=== PATIENT | female | born 1950 | race Caucasian/White ===

== ENCOUNTER 2016-09-06 02:46 | Emergency (ER) | payer BC ==
[2016-09-06] MEDS ORDERED: Aspirin 81 MG Tab.Chew PO ONE (03:14)
[2016-09-06] MEDS ORDERED: Sodium Chloride 0.9% 2.5 ML Syringe FLUSH PRN ×2 (03:14)
[2016-09-06] MEDS ORDERED: Sodium Chloride 0.9% 10 ML Syringe FLUSH PRN ×2 (03:14)
--- NOTE | 2016-09-06 03:20 | EDM.PDOC ---
ED HISTORY OF PRESENT ILLNESS - General Stated Complaint: ARM,NECK, POSSIBLE CHEST PAIN Time Seen by Provider: 09/06/16 02:55 Source of Information: Reports: Patient History Limitations: Reports: No limitations - History of Present Illness INITIAL COMMENTS - FREE TEXT/NARRATIVE: HISTORY AND PHYSICAL: History of present illness: [66-year-old female with a history of asthma and atrial fibrillation, not currently in nature fibrillation now presents emergency department complaining of right upper back pain and right shoulder pain and right bicep pain and per patient the pain these areas is reproduced with palpation and movement .the right shoulder pain is the same that she's had for years] and she is presumed it was bursitis. Patient now has reproducible soreness in her right upper back so she came to the emergency room to have it checked out. Denies exertional chest pain or shortness of breath no nausea vomiting or diaphoresis. Negative stress test previously but more than 5 years ago. Review of systems: As per history of present illness and below otherwise all systems reviewed and negative. Past medical history: As per history of present illness and as reviewed below otherwise noncontributory. Surgical history: As per history of present illness and as reviewed below otherwise noncontributory. Social history: No reported history of drug or alcohol abuse. Family history: As per history of present illness and as reviewed below otherwise noncontributory. Physical exam: HEENT: Atraumatic, normocephalic, pupils reactive, negative for conjunctival pallor or scleral icterus, mucous membranes moist, throat clear, neck supple, nontender, trachea midline. Lungs: Clear to auscultation, breath sounds equal bilaterally, chest nontender. Heart: S1S2, regular, negative for clicks, rubs, or JVD. Abdomen: Soft, nondistended, nontender. Negative for masses or hepatosplenomegaly. Negative for costovertebral tenderness. Pelvis: Stable nontender. Genitourinary: Deferred. Rectal: Deferred. Extremities: Atraumatic, negative for cords or calf pain. Neurovascular unremarkable. Neuro: Awake, alert, oriented. Cranial nerves II through XII unremarkable. Cerebellum unremarkable. Motor and sensory unremarkable throughout. Exam nonfocal. Diagnostics: [] Therapeutics: [] Impression: [] Plan: [] Definitive disposition and diagnosis as appropriate pending reevaluation and review of above. - Related Data Allergies/ADRs: Allergies Allergy/AdvReac Type Severity Reaction Status Date / Time oxycodone HCl [From Percodan] Allergy Rash Verified 09/06/16 03:25 oxycodone terephthalate Allergy Rash Verified 09/06/16 03:25 [From Percodan] Home Meds: Home Meds Fluticasone Propionate [Flonase] 2 sprays ABEBA DAILY 02/14/14 [History] Multivitamin [Multi-Vitamin Daily] 1 tab PO DAILY 02/14/14 [History] Simvastatin [Zocor] 20 mg PO DAILY 02/14/14 [History] Ascorbic Acid [C-1000] 500 mg PO DAILY 02/28/14 [History] Calcium Carbonate/Vitamin D3 [Calcium 500-Vit D3 200 Caplet] 1 tab PO BID [History] Diclofenac Sodium [Voltaren] 75 mg PO BIDM 02/28/14 [History] Diltiazem [Cardizem CD] 240 mg PO DAILY #39 cap.cd 02/28/14 [Rx] Doxycycline Hyclate 100 mg PO DAILY 02/28/14 [History] [place]-3/DHA/Epa/Fish Oil [Fish Oil 1,000 mg Softgel] 1 each PO DAILY 02/28/14 [ History] Vitamin E 400 units PO DAILY 02/28/14 [History] Levalbuterol HCl [Xopenex Concentrate] 1.25 mg IH QID PRN 03/06/14 [History] Levalbuterol Tartrate [Xopenex Hfa] 1 - 2 puff INH Q4H PRN 07/03/16 [History] Montelukast Sodium 1 tab PO QPM 07/03/16 [History] Pantoprazole Sodium 1 tab PO DAILY 07/03/16 [History] Acetaminophen/HYDROcodone [[place] 325-10 MG] 1 - 2 tab PO Q4H PRN #80 tablet [Rx] Aspirin 325 mg PO BID #60 tablet 07/10/16 [Rx] Docusate Sodium [Colace] 100 mg PO BID #60 cap 07/10/16 [Rx] traMADol [Ultram] 50 - 100 mg PO Q6H PRN #80 tablet 07/10/16 [Rx] Past Medical History HEENT History: Reports: Other (see below) Other HEENT History: wears glasses, has permanent upper dental bridge, has occular roacea (takes doxycycline) Cardiovascular History: Reports: Afib Other Cardiovascular History: developed A-Fib because of severe asthma attack, takes diltiazem, no recurrence of A-Fib Respiratory History: Reports: Asthma Gastrointestinal History: Reports: GERD Genitourinary History: Reports: None 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 Musculoskeletal History: Reports: Arthritis Neurological History: Reports: Other (see below) Other Neuro History: has "tremors" undiagnosed Psychiatric History: Reports: Anxiety, Depression, Other (see below) Other Psychiatric History: VERY Claustrophobic Endocrine/Metabolic History: Reports: Obesity/BMI 30+ Hematologic History: Reports: None Immunologic History: Reports: None Other Oncologic History: has skin lesions removed, unsure of type Dermatologic History: Reports: None - Infectious Disease History Infectious Disease History: Reports: None - Past Surgical History Head Surgeries/Procedures: Reports: None HEENT Surgical History: Reports: Oral surgery Cardiovascular Surgical History: Reports: None Respiratory Surgical History: Reports: None GI Surgical History: Reports: Colonoscopy Female Surgical History: Reports: D&C Endocrine Surgical History: Reports: None Neurological Surgical History: Reports: None Musculoskeletal Surgical History: Reports: None Oncologic Surgical History: Reports: None Social & Family History - Family History Family Medical History: Noncontributory HEENT: Reports: None Cardiac: Reports: CAD, Hypertension Respiratory: Reports: None GI: Reports: None : Reports: None OBGYN: Reports: None Musculoskeletal: Reports: None Neurological: Reports: None Psychiatric: Reports: None Endocrine/Metabolic: Reports: Diabetes, type II Hematologic: Reports: None Immunologic: Reports: None Dermatologic: Reports: None Oncologic: Reports: None - Tobacco Use Smoking Status *Q: Never Smoker Second Hand Smoke Exposure: No - Caffeine Use Caffeine Use: Reports: None - Alcohol Use Days Per Week of Alcohol Use: 0 - Recreational Drug Use Recreational Drug Use: No Drug Use in Last 12 Months: No ED ROS GENERAL - Review of Systems Review Of Systems: See Below (See history of present illness) ED EXAM, GENERAL - Physical Exam Exam: See Below (See history of present illness) Course - Vital Signs Text/Narrative:: Signs and symptoms consistent with musculoskeletal pain right upper back and right upper extremity easily reproduced with palpation. Patient has no neurologic deficit. She has no clinical evidence of acute coronary syndrome, her EKG is normal sinus rhythm at 77 with a normal axis and no STEMI. Chest x- ray interpreted by me shows no acute disease, chronic findings which are unremarkable. He workup negative. Patient agrees with outpatient followup with NSAIDs will see her PCP in one day. Crit return precautions given Last Recorded V/S: Last Vital Signs Temp 36.4 C 09/06/16 02:49 Pulse 93 09/06/16 02:49 Resp 18 09/06/16 02:49 BP 180/90 H 09/06/16 02:49 Pulse Ox 95 09/06/16 02:49 - Orders/Labs/Meds Orders: Active Orders 24 hr Category Date Time Status EKG 12 Lead [EKG Documentation Completion] [RC] STAT Care 09/06/16 03:14 Active Peripheral IV Care [RC] . DIRECTED Care 09/06/16 03:14 Active Chest 1V Frontal [CR] Stat Exams 09/06/16 03:14 Taken Sodium Chloride 0.9% [Saline Flush] Med 09/06/16 03:14 Active 10 ml FLUSH ASDIRECTED PRN Sodium Chloride 0.9% [Saline Flush] Med 09/06/16 03:14 Active 10 ml FLUSH ASDIRECTED PRN Sodium Chloride 0.9% [Saline Flush] Med 09/06/16 03:14 Active 2.5 ml FLUSH ASDIRECTED PRN Sodium Chloride 0.9% [Saline Flush] Med 09/06/16 03:14 Active 2.5 ml FLUSH ASDIRECTED PRN Peripheral IV Insertion Adult [OM.PC] Stat Oth 09/06/16 03:14 Ordered Saline Lock Insert [OM.PC] Stat Oth 09/06/16 03:14 Ordered Medication Orders Sodium Chloride (Saline Flush) 10 ml FLUSH ASDIRECTED PRN PRN Reason: Keep Vein Open Sodium Chloride (Saline Flush) 2.5 ml FLUSH ASDIRECTED PRN PRN Reason: Keep Vein Open Sodium Chloride (Saline Flush) 10 ml FLUSH ASDIRECTED PRN PRN Reason: Keep Vein Open Sodium Chloride (Saline Flush) 2.5 ml FLUSH ASDIRECTED PRN PRN Reason: Keep Vein Open Labs: Laboratory Tests 09/06/16 09/06/16 09/06/16 Range/Units 03:14 03:40 03:40 WBC 6.80 (4.0-11.0) K/uL RBC 4.79 (4.30-5.90) M/uL Hgb 13.7 (12.0-16.0) g/dL Hct 42.2 (36.0-46.0) % MCV 88.1 (80.0-98.0) fL MCH 28.6 (27.0-32.0) pg MCHC 32.5 (31.0-37.0) g/dL RDW Std Deviation 45.6 (28.0-62.0) fl RDW Coeff of [place] 14 (11.0-15.0) % Plt Count 236 (150-400) K/uL MPV 9.20 (7.40-12.00) fL Neut % (Auto) 67.6 (48.0-80.0) % Lymph % (Auto) 22.2 (16.0-40.0) % [place] % (Auto) 6.2 (0.0-15.0) % Eos % (Auto) 3.7 (0.0-7.0) % Baso % (Auto) 0.3 (0.0-1.5) % Neut # 4.6 (1.4-5.7) K/uL Lymph # 1.5 (0.6-2.4) K/uL [place] # 0.4 (0.0-0.8) K/uL Eos # 0.3 (0.0-0.7) K/uL Baso # 0.0 (0.0-0.1) K/uL Nucleated RBC % 0.0 /100WBC Nucleated RBCs # 0 K/uL Sodium 143 (136-146) mmol/L Potassium 4.1 (3.5-5.1) mmol/L Chloride 110 (98-110) mmol/L Carbon Dioxide 23 (21-31) mmol/L BUN 13 (6.0-23.0) mg/dL Creatinine 0.8 (0.6-1.5) mg/dL Est Cr Clr Drug Dosing 58.77 mL/min Estimated GFR (MDRD) > 60.0 ml/min Glucose 118 H (60-110) mg/dL Calcium 8.9 (8.8-10.8) mg/dL Total Bilirubin 0.5 (0.1-1.5) mg/dL AST 19 (5-40) IU/L ALT 32 (8-54) IU/L Alkaline Phosphatase 61 (40-150) Troponin I < 0.10 (0.0-0.29) NG/ML Total Protein 6.5 (6.0-8.0) g/dL Albumin 3.9 (3.4-4.8) g/dL Globulin 2.6 (2.0-3.5) g/dL Albumin/Globulin Ratio 1.5 (1.3-2.8) Meds: Medications Generic Name Dose Route Start Last Admin Trade Name Freq PRN Reason Stop Dose Admin Sodium Chloride 10 ml 09/06/16 03:14 Saline Flush FLUSH ASDIRECTED PRN Keep Vein Open Sodium Chloride 2.5 ml 09/06/16 03:14 Saline Flush FLUSH ASDIRECTED PRN Keep Vein Open Sodium Chloride 10 ml 09/06/16 03:14 Saline Flush FLUSH ASDIRECTED PRN Keep Vein Open Sodium Chloride 2.5 ml 09/06/16 03:14 Saline Flush FLUSH ASDIRECTED PRN Keep Vein Open Discontinued Medications Generic Name Dose Route Start Last Admin Trade Name Freq PRN Reason Stop Dose Admin Aspirin 324 mg 09/06/16 03:14 09/06/16 03:47 Aspirin PO 09/06/16 03:15 324 mg ONETIME ONE Administration Departure - Departure Time of Disposition: 06:00 Disposition: Home, Self-Care 01 Condition: good Clinical Impression: Shoulder pain, right, Upper back pain on right side Instructions: Shoulder Pain, [id number] Referrals: PCP,None [Primary Care Provider] - Forms: ED Department Discharge Additional Instructions: Her history and exam date that your shoulder and back pain are musculoskeletal in nature. There is a possibility that the pain could be referred from compression of the nerve root in your neck. Take ibuprofen 800 mg every 6 hours and Tylenol as needed. Followup with your Dr. in one to 2 days for reevaluation. If your symptoms persist in your Dr. feels it is indicated he or she may consider referring him for an MRI of the neck to rule out nerve root compression as the cause for referred pain in the right arm shoulder and upper back. Your history exam and results do not suggest that the pain is from your heart today but since it has been more than 5 years and she got a stress test followup with your doctor this arrange scheduling another. Return immediately for new severe or worsening symptoms otherwise follow up with your Dr. in the next one to 2 days - My Orders Last 24 Hours: My Active Orders 09/06/16 03:14 EKG 12 Lead [EKG Documentation Completion] [RC] STAT Peripheral IV Care [RC] . DIRECTED Chest 1V Frontal [CR] Stat Sodium Chloride 0.9% [Saline Flush] 10 ml FLUSH ASDIRECTED PRN Sodium Chloride 0.9% [Saline Flush] 10 ml FLUSH ASDIRECTED PRN Sodium Chloride 0.9% [Saline Flush] 2.5 ml FLUSH ASDIRECTED PRN Sodium Chloride 0.9% [Saline Flush] 2.5 ml FLUSH ASDIRECTED PRN Peripheral IV Insertion Adult [OM.PC] Stat Saline Lock Insert [OM.PC] Stat - Assessment/Plan Last 24 Hours: My Active Orders 09/06/16 03:14 EKG 12 Lead [EKG Documentation Completion] [RC] STAT Peripheral IV Care [RC] . DIRECTED Chest 1V Frontal [CR] Stat Sodium Chloride 0.9% [Saline Flush] 10 ml FLUSH ASDIRECTED PRN Sodium Chloride 0.9% [Saline Flush] 10 ml FLUSH ASDIRECTED PRN Sodium Chloride 0.9% [Saline Flush] 2.5 ml FLUSH ASDIRECTED PRN Sodium Chloride 0.9% [Saline Flush] 2.5 ml FLUSH ASDIRECTED PRN Peripheral IV Insertion Adult [OM.PC] Stat Saline Lock Insert [OM.PC] Stat
[2016-09-06 04:08] LABS: CHLORIDE,CL 110 mmol/L (98-110); SODIUM,NA 143 mmol/L (136-146)
[2016-09-06 06:20] VITALS: BP 141/63
--- NOTE | 2016-09-07 18:05 | CR ---
EXAM DATE: 09/06/16 PATIENT'S AGE: 66 Patient: OCHOA MARTIN Facility: [place], [place] Site . Site : 1950 Study: XRay Chest [id number]/19/2017 4:39:55 AM Ordering Physician: Jelani Bernal Final Report: Indication: Chest tightness Technique: Chest 1 view Comparison: 03/03/2014. Findings/Impression: Cardiovascular and mediastinum: Mildly prominent cardiac silhouette, could be related to the portable technique. A mildly unfolded aorta. Lungs and pleural space: Lungs are clear. No sign of infiltrate or mass. No sign of pleural effusion. No pneumothorax. Bones and soft tissues: No significant findings. Dictated by Winston Bryan MD @ 09/06/2016 5:54:02 AM Dictated by: Winston Bryan MD @ 09/06/2016 05:54:08 (Electronic Signature) Report Signed by Proxy and Original Signed Document filed in the Medical Record. KIRAN
== END 2016-09-06 06:20 | disposition home or self-care (01) ==
LOC: MW.ED 02:46
DX: M25.511 Pain in right shoulder (principal); M54.9 Dorsalgia, unspecified; I48.91 Unspecified atrial fibrillation; K21.9 Gastro-esophageal reflux disease without esophagitis; E66.9 Obesity, unspecified; Z68.36 Body mass index [BMI] 36.0-36.9, adult; Z88.5 Allergy status to narcotic agent; Z79.82 Long term (current) use of aspirin; Z79.899 Other long term (current) drug therapy
CPT/HCPCS: 36415; 71010; 80053; 84484; 85025; 93005; 99284; A9270; 99283

== ENCOUNTER 2017-01-13 09:28 | Day surgery (SDC) | payer BC ==
[~2017-01-13 09:28] MED LIST: Lactated Ringers 1,000 ML IV SCH; Sodium Chloride 0.9% 10 ML Syringe FLUSH PRN; Sodium Chloride 0.9% 2.5 ML Syringe FLUSH PRN; ceFAZolin 2 GM in Premix Bag 1 BAG IV ONE
--- NOTE | 2017-01-13 10:14 | PCM.PREANE ---
Preanesthetic Assessment - Anesthesia/Transfusion/Family Hx Anesthesia History: Prior Anesthesia Without Reaction Other Type of Anesthesia Reaction Comment: "with last breast bx I cried during the whole procedure" Family History of Anesthesia Reaction: No Transfusion History: No Prior Transfusion(s) Intubation History: Unknown - Review of Systems General: No Symptoms Pulmonary: No Symptoms Cardiovascular: No Symptoms Gastrointestinal: No Symptoms Neurological: No Symptoms Other: Reports: None - Physical Assessment Height: 1.6 m Weight: 96.615 kg ASA Class: 3 Mental Status: Alert & Oriented x3 Airway Class: Mallampati = 3 Dentition: Reports: Normal Dentition Thyro-Mental Finger Breadths: 2 Mouth Opening Finger Breadths: 2 ROM/Head Extension: Full Lungs: Clear to Auscultation, Normal Respiratory Effort Cardiovascular: Regular Rate, Regular Rhythm - Allergies Allergies/Adverse Reactions: Allergies Allergy/AdvReac Type Severity Reaction Status Date / Time oxycodone HCl [From Percodan] Allergy Rash Verified 09/06/16 03:25 oxycodone terephthalate Allergy Rash Verified 09/06/16 03:25 [From Percodan] - Blood Blood Available: No - Anesthesia Plan Pre-Op Medication Ordered: None - Acknowledgements Anesthesia Type Planned: MAC (general anesthesia back-up) Pt an Appropriate Candidate for the Planned Anesthesia: Yes Alternatives and Risks of Anesthesia Discussed w Pt/Guardian: Yes Pt/Guardian Understands and Agrees with Anesthesia Plan: Yes PreAnesthesia Questionnaire - Past Health History Medical/Surgical History: Denies Medical/Surgical History HEENT History: Reports: Other (See Below) Other HEENT History: wears glasses, has permanent upper dental bridge, has occular roacea (takes doxycycline) Cardiovascular History: Reports: Afib, High Cholesterol Other Cardiovascular History: developed A-Fib because of severe asthma attack, takes diltiazem, no recurrence of A-Fib Respiratory History: Reports: Asthma, Sleep Apnea Other Respiratory History: uses CPAP Gastrointestinal History: Reports: GERD Genitourinary History: Reports: None 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 Musculoskeletal History: Reports: Arthritis Neurological History: Reports: Other (See Below) Other Neuro History: has "tremors" undiagnosed Psychiatric History: Reports: Anxiety, Depression, Other (See Below) Other Psychiatric History: VERY Claustrophobic Endocrine/Metabolic History: Reports: Obesity/BMI 30+ Hematologic History: Reports: None Immunologic History: Reports: None Oncologic (Cancer) History: Reports: Other (See Below) Other Oncologic History: has skin cancer lesions left breast and rt yarsanism Dermatologic History: Reports: None - Infectious Disease History Infectious Disease History: Reports: None - Past Surgical History Head Surgeries/Procedures: Reports: None HEENT Surgical History: Reports: Oral Surgery Cardiovascular Surgical History: Reports: None Respiratory Surgical History: Reports: None GI Surgical History: Reports: Colonoscopy Female Surgical History: Reports: Breast Biopsy (x2), D&C Endocrine Surgical History: Reports: None Neurological Surgical History: Reports: None Musculoskeletal Surgical History: Reports: Knee Replacement Other Musculoskeletal Surgeries/Procedures:: left knee replacement Oncologic Surgical History: Reports: None Dermatological Surgical History: Reports: Skin Biopsy - SUBSTANCE USE Smoking Status *Q: Never Smoker Tobacco Use Within Last Twelve Months: No Second Hand Smoke Exposure: No Days Per Week of Alcohol Use: 0 Recreational Drug Use History: No - HOME MEDS Home Medications: Home Meds Fluticasone Propionate [Flonase] 2 sprays ABEBA DAILY 02/14/14 [History] Multivitamin [Multi-Vitamin Daily] 1 tab PO DAILY 02/14/14 [History] Simvastatin [Zocor] 20 mg PO DAILY 02/14/14 [History] Ascorbic Acid [C-1000] 500 mg PO DAILY 02/28/14 [History] Calcium Carbonate/Vitamin D3 [Calcium 500-Vit D3 200 Caplet] 2 tab PO DAILY 04/03 [History] Diclofenac Sodium [Voltaren] 75 mg PO BIDM 02/28/14 [History] Diltiazem [Cardizem CD] 240 mg PO DAILY #39 cap.cd 02/28/14 [Rx] Doxycycline Hyclate 100 mg PO DAILY 02/28/14 [History] [place]-3/DHA/Epa/Fish Oil [Fish Oil 1,000 mg Softgel] 3 tab PO DAILY 02/28/14 [ History] Vitamin E 400 units PO DAILY 02/28/14 [History] Levalbuterol HCl [Xopenex Concentrate] 1.25 mg IH QID PRN 03/06/14 [History] Levalbuterol Tartrate [Xopenex Hfa] 1 - 2 puff INH Q4H PRN 07/03/16 [History] Montelukast Sodium 1 tab PO QPM 07/03/16 [History] Pantoprazole Sodium 1 tab PO DAILY 07/03/16 [History] Aspirin 81 mg PO BID 12/31/16 [History] Fluticasone/Salmeterol [Advair Diskus 500-50] 1 inh INH BID 12/31/16 [History] Nitroglycerin 0.4 mg SL ASDIRECTED PRN 12/31/16 [History] - CURRENT (IN HOUSE) MEDS Current Meds: Current Medications Lactated Ringer's (Ringers, Lactated) 1,000 mls @ 125 mls/hr IV ASDIRECTED ABIGAIL Sodium Chloride (Saline Flush) 10 ml FLUSH ASDIRECTED PRN PRN Reason: Keep Vein Open Sodium Chloride (Saline Flush) 2.5 ml FLUSH ASDIRECTED PRN PRN Reason: Keep Vein Open Discontinued Medications Cefazolin Sodium/Dextrose 2 gm (/ Premix) 50 mls @ 100 mls/hr IV ONETIME ONE Stop: 01/12/17 12:24
[2017-01-13] MEDS: Midazolam 1 MG/ML 2 ML SDV IVPUSH ONE ×2 (10:23→10:49)
[2017-01-13] MEDS ORDERED: Lidocaine 2% 5 ML SDV ONE (12:28)
[2017-01-13] MEDS ORDERED: Sodium Chloride 0.9% 20 ML ONE (12:29)
[2017-01-13] MEDS ORDERED: ceFAZolin 1 GM Vial ONE (12:29)
[2017-01-13] MEDS ORDERED: fentaNYL 250 MCG/5 ML SDV ONE (12:29)
[2017-01-13] MEDS ORDERED: Propofol 200 MG/20 ML SDV ONE ×2 (12:29→15:00)
[2017-01-13] MEDS ORDERED: Midazolam 1 MG/ML 2 ML SDV ONE (12:29)
[2017-01-13] MEDS ORDERED: Bupivacaine 0.5% 30 ML SDV ONE (13:41)
--- NOTE | 2017-01-13 15:42 | PCM.OPNOTE ---
- General Post-Op/Procedure Note Date of Surgery/Procedure: 01/13/17 Operative Procedure(s): Left breast lesion excisional biopsy Findings: Left medial lower breast lesions wire localized. Clip in specimen. Margins free of abnormal cells. Pre Op Diagnosis: atypical ductal hyperplasia Post-Op Diagnosis: same Anesthesia Technique: General LMA Primary Surgeon: Saumya Barahona Fluid Replacement, Intraop: 900 EBL in mLs: 5 Condition: Good
[2017-01-13] MEDS ORDERED: fentaNYL 100 MCG/2 ML SDV IVPUSH PRN (15:49)
--- NOTE | 2017-01-13 16:38 | MY ---
EXAMINATION: Left breast mammogram where localization HISTORY: Dysplasia COMPARISON: 11/18/2016 TECHNIQUE: The procedure, risks, and benefits were discussed with the patient. The hourglass shaped clip was visualized. A medial approach was planned. The overlying area was sterilely prepped. 1% lid ocaine was administered for local anesthesia. Using mammogram guidance a wire localization needle wa s advanced to the region of the clip. This was confirmed with the cc view. The hook was deployed and secured. IMPRESSION: Successful wire localization of the hourglass-shaped clip.
[2017-01-13 16:59] VITALS: BP 150/77
--- NOTE | 2017-01-14 14:29 | OR ---
SURGEON: BARBARA VÁZQUEZ MD DATE OF PROCEDURE: 01/13/2017 PREOPERATIVE DIAGNOSIS: Atypical ductal hyperplasia of the left breast. POSTOPERATIVE DIAGNOSIS: Atypical ductal hyperplasia of the left breast. PROCEDURE PERFORMED: Left breast wire localized excisional biopsy. ANESTHESIA: General LMA. FLUIDS: See anesthesia record. ESTIMATED BLOOD LOSS: 5 mL. FINDINGS: Biopsy clip contained within the incisional biopsy specimen. COMPLICATIONS: None. INDICATIONS: The patient is a 66-year-old female, who presented to clinic with a biopsy of atypical ductal hyperplasia. This was performed by core needle sampling. The patient and I discussed that this is a high risk lesion with a possibility of harboring ductal carcinoma in situ. Due to this, she would need to undergo a wide local excision of the previously biopsied area. The patient and I discussed the procedure as well as expected perioperative course. We discussed the risks, including bleeding, infection, or damage to surrounding structures. The patient verbalized understanding and wishes to proceed. Of note, the patient has had a previous biopsy done more medially in the breast. This was incorrect and the biopsies from the site were normal. The radiologist and I reviewed the correct location of the biopsy clip from her previous core needle biopsy. The biopsy site was medial and located in the left lower quadrant. This was ensured before wire localization as well as taking the patient to the operating room. PROCEDURE IN DETAIL: The patient was taken to the operating room and placed on the OR table in supine position. A time-out was completed verifying the patient's name, age, date of , allergies, and procedure to be performed. General anesthesia was induced and an LMA placed. The left chest, neck, and arm were prepped and draped in usual standard fashion. The wire that was placed in Radiology was also prepped into the field. I first anesthetized the area overlying the wire with 0.5% Marcaine plain. The wire traversed from medial to lateral, and so I made a 5 cm incision starting at the wire medially and extending laterally along the lower aspect of the breast. I used cautery to then dissect down into the subcutaneous tissues. I had reached the level of the subcutaneous fat, I took out a section of tissue approximately 2 x 2 x 2 cm in diameter around the wire itself. The specimen was then passed off the field and sent to Radiology. While passing it off the field, unfortunately the wire fell out. Radiographic images were taken that showed the clip to be within the biopsy specimen. The specimen was then taken to Pathology and the margins for frozen section. The margins of my biopsy were free of any malignancy or atypical cells. The wound was copiously irrigated with normal saline. Hemostasis was achieved with cautery. I then closed the wound with interrupted 3-0 Vicryl in the subcutaneous fat and a running 4-0 Monocryl stitch in the subcuticular space. The wound was dressed with Steri-Strips and sterile dressings. All counts were complete and correct at the end of the case. The patient was taken to the PACU in stable condition. DAVID DE LA GARZA /[id number]
--- NOTE | 2017-01-18 08:26 | MY ---
EXAMINATION: Specimen mammogram HISTORY: Needle localization COMPARISON: Same day TECHNIQUE: Single view FINDINGS/IMPRESSION: A specimen mammogram demonstrates the clip of concern within the specimen.
== END 2017-01-13 16:50 | disposition home or self-care (01) ==
LOC: MW.SDS 09:28
PROVIDERS: ATTEND Surgery
PROC: 0HBU0ZX Excision of Left Breast, Open Approach, Diagnostic (ICD-10-PCS; principal; 2017-01-13)
DX: N60.92 Unspecified benign mammary dysplasia of left breast (principal); I10 Essential (primary) hypertension; J45.909 Unspecified asthma, uncomplicated; I48.91 Unspecified atrial fibrillation; E66.9 Obesity, unspecified; G47.33 Obstructive sleep apnea (adult) (pediatric); E78.00 Pure hypercholesterolemia, unspecified; K21.9 Gastro-esophageal reflux disease without esophagitis; Z79.899 Other long term (current) drug therapy; Z79.82 Long term (current) use of aspirin; Z96.652 Presence of left artificial knee joint
CPT/HCPCS: 19125; 19281; 76098; J0690; J2250; J3010; J7120; 00400; 88307; 88331; J2704

== ENCOUNTER 2018-10-30 21:34 | Emergency (ER) | payer MEDICARE, BC ==
[2018-10-30] MEDS ORDERED: Sodium Chloride 0.9% 10 ML Syringe FLUSH PRN (22:06)
[2018-10-30] MEDS ORDERED: Sodium Chloride 0.9% 2.5 ML Syringe FLUSH PRN (22:06)
[2018-10-30] MEDS ORDERED: Ketorolac 30 MG/ML SDV IVPUSH ONE (22:09)
[2018-10-30] MEDS ORDERED: traMADol 50 MG Tab PO ONE (22:14)
--- NOTE | 2018-10-30 22:14 | EDM.PDOC ---
ED HPI GENERAL MEDICAL PROBLEM - General Chief Complaint: Abdominal Pain Stated Complaint: STOMACH PAIN Time Seen by Provider: 10/30/18 22:04 - History of Present Illness INITIAL COMMENTS - FREE TEXT/NARRATIVE: HISTORY AND PHYSICAL: History of present illness: The patient is a 68-year-old female with a history of A. fib hypercholesterolemia asthma who follows with Dr. Genaro Rowan and presents to the ED for left lower quadrant pain. She has had abdominal distention and growth of her abdominal girth over the last one year and actually saw Dr. Avila in the clinic and had a CT scan performed on Wednesday. I reviewed that CT scan finding but she is not aware of those results as she did not receive them after her study. Please see below for those findings. The patient says that she is having pain in the left lower abdomen and she was worried about diverticulitis as she has had that before. She has no nausea vomiting diarrhea urinary complaints such as burning or frequency no flank pain no fevers chills chest pain or shortness of breath. Review of systems: As per history of present illness and below otherwise all systems reviewed and negative. Past medical history: As per history of present illness and as reviewed below otherwise noncontributory. Surgical history: As per history of present illness and as reviewed below otherwise noncontributory. Social history: No reported history of drug or alcohol abuse. Family history: As per history of present illness and as reviewed below otherwise noncontributory. Physical exam: General: Well-developed well-nourished female who is nontoxic and vital signs are noted by me. She has a visibly very large rotund abdomen please see exam below HEENT: Atraumatic, normocephalic, pupils reactive, negative for conjunctival pallor or scleral icterus, mucous membranes moist, throat clear, neck supple, nontender, trachea midline. Lungs: Clear to auscultation, breath sounds equal bilaterally, chest nontender. Heart: S1S2, regular rate and rhythm there is a systolic ejection murmur heard at the left sternal border which the patient tells me is not new Abdomen: Soft, grossly distended abdomen with fluid wave which is soft and not tense, there is no localized tenderness even in the left lower quadrant on deep palpation that I can reproduce and there is no rebound or guarding Negative for masses or hepatosplenomegaly grossly as can be assessed with this distended abdomen. Negative for costovertebral tenderness. Pelvis: Stable nontender. Genitourinary: Deferred. Rectal: Deferred. Extremities: Atraumatic, negative for cords or calf pain. Neurovascular unremarkable. No pedal edema or leg asymmetry Neuro: Awake, alert, oriented. Cranial nerves II through XII unremarkable. Cerebellum unremarkable. Motor and sensory unremarkable throughout. Exam nonfocal. 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 Therapeutics: Toradol IV tramadol I discussed with the patient that she needs to call Dr. Avila first thing in the morning and discuss with him the care plan as this mass in her ovary likely needs removal before it causes more complications. Currently she has no fever eating and drinking normally and only has discomfort which I will help her manage. Impression: Abdominal pain with abnormal CT scan stable Definitive disposition and diagnosis as appropriate pending reevaluation and review of above. left lower abdomen Pain Score (Numeric/FACES): 8 - Related Data Allergies Allergy/AdvReac Type Severity Reaction Status Date / Time oxycodone HCl [From Percodan] Allergy Rash Verified 10/30/18 22:03 oxycodone terephthalate Allergy Rash Verified 10/30/18 22:03 [From Percodan] Home Meds: Home Meds Fluticasone Propionate [Flonase] 2 sprays ABEBA DAILY 02/14/14 [History] Multivitamin [Multi-Vitamin Daily] 1 tab PO DAILY 02/14/14 [History] Simvastatin [Zocor] 20 mg PO DAILY 02/14/14 [History] Ascorbic Acid [C-1000] 500 mg PO DAILY 02/28/14 [History] Calcium Carbonate/Vitamin D3 [Calcium 500-Vit D3 200 Caplet] 2 tab PO DAILY 04/03 [History] Diclofenac Sodium [Voltaren] 75 mg PO BIDM 02/28/14 [History] Diltiazem [Cardizem CD] 240 mg PO DAILY #39 cap.cd 02/28/14 [Rx] Doxycycline Hyclate 100 mg PO DAILY 02/28/14 [History] [place]-3/DHA/Epa/Fish Oil [Fish Oil 1,000 mg Softgel] 3 tab PO DAILY 02/28/14 [ History] Vitamin E 400 units PO DAILY 02/28/14 [History] Levalbuterol HCl [Xopenex Concentrate] 1.25 mg IH QID PRN 03/06/14 [History] Levalbuterol Tartrate [Xopenex Hfa] 1 - 2 puff INH Q4H PRN 07/03/16 [History] Montelukast Sodium 1 tab PO QPM 07/03/16 [History] Pantoprazole Sodium 1 tab PO DAILY 07/03/16 [History] Aspirin 81 mg PO BID 12/31/16 [History] Nitroglycerin 0.4 mg SL ASDIRECTED PRN 12/31/16 [History] Carboxymethyl/Gly/Poly80/Pf [Refresh Optive Advanced Drops] 1 each OP ASDIRECTED 12/17/17 [History] Docusate Sodium [Colace] 100 mg PO DAILY 12/17/17 [History] predniSONE [Prednisone] 10 mg PO BEDTIME 12/17/17 [History] Fluticasone/Vilanterol [Breo Ellipta 200-25 Mcg INH] 12 inhalation INH DAILY [History] Past Medical History - Past Health History Medical/Surgical History: Denies Medical/Surgical History HEENT History: Reports: Other (See Below) Other HEENT History: wears glasses, has permanent upper dental bridge, has occular rosacea (takes doxycycline) Cardiovascular History: Reports: Afib, High Cholesterol Other Cardiovascular History: developed A-Fib because of severe asthma attack, takes diltiazem, no recurrence of A-Fib Respiratory History: Reports: Asthma, Sleep Apnea Other Respiratory History: uses CPAP Gastrointestinal History: Reports: GERD Genitourinary History: Reports: None SHUTTLE REPAIRER History: Reports: None Musculoskeletal History: Reports: Arthritis Neurological History: Reports: Other (See Below) Other Neuro History: has "tremors" undiagnosed Psychiatric History: Reports: Anxiety, Depression, Other (See Below) Other Psychiatric History: VERY Claustrophobic Endocrine/Metabolic History: Reports: Obesity/BMI 30+ Hematologic History: Reports: None Immunologic History: Reports: None Oncologic (Cancer) History: Reports: Other (See Below) Other Oncologic History: has skin lesions removed from rt [employer] and left breast , unsure of type Dermatologic History: Reports: None - Infectious Disease History Infectious Disease History: Reports: None - Past Surgical History Head Surgeries/Procedures: Reports: None HEENT Surgical History: Reports: Oral Surgery Cardiovascular Surgical History: Reports: None Respiratory Surgical History: Reports: None GI Surgical History: Reports: Colonoscopy Female Surgical History: Reports: Breast Biopsy, D&C Endocrine Surgical History: Reports: None Neurological Surgical History: Reports: None Musculoskeletal Surgical History: Reports: Knee Replacement Other Musculoskeletal Surgeries/Procedures:: left knee replacement Oncologic Surgical History: Reports: None Dermatological Surgical History: Reports: Skin Biopsy Social & Family History - Family History Family Medical History: Noncontributory HEENT: Reports: None Cardiac: Reports: CAD, Hypertension Respiratory: Reports: None GI: Reports: None : Reports: None OBGYN: Reports: None Musculoskeletal: Reports: None Neurological: Reports: None Psychiatric: Reports: None Endocrine/Metabolic: Reports: Diabetes, type II Hematologic: Reports: None Immunologic: Reports: None Dermatologic: Reports: None Oncologic: Reports: None - Caffeine Use Caffeine Use: Reports: None ED ROS GENERAL - Review of Systems Review Of Systems: ROS reveals no pertinent complaints other than HPI. ED EXAM, GENERAL - Physical Exam Exam: See Below (See dictation) Course - Vital Signs Last Recorded V/S: Last Vital Signs Temp 36.7 C 10/30/18 21:55 Pulse 85 10/30/18 21:55 Resp 18 10/30/18 21:55 BP 160/96 H 10/30/18 21:55 Pulse Ox 94 L 10/30/18 21:55 - Orders/Labs/Meds Orders: Active Orders 24 hr Category Date Time Status Sodium Chloride 0.9% [Saline Flush] Med 10/30/18 22:06 Active 10 ml FLUSH ASDIRECTED PRN Sodium Chloride 0.9% [Saline Flush] Med 10/30/18 22:06 Active 2.5 ml FLUSH ASDIRECTED PRN Saline Lock Insert [OM.PC] Stat Oth 10/30/18 22:06 Ordered Medication Orders Sodium Chloride (Saline Flush) 10 ml FLUSH ASDIRECTED PRN PRN Reason: Keep Vein Open Sodium Chloride (Saline Flush) 2.5 ml FLUSH ASDIRECTED PRN PRN Reason: Keep Vein Open Labs: Laboratory Tests 10/30/18 10/30/18 10/30/18 Range/Units 22:43 22:43 22:50 WBC 9.00 (4.0-11.0) K/uL RBC 4.99 (4.30-5.90) M/uL Hgb 14.4 (12.0-16.0) g/dL Hct 43.9 (36.0-46.0) % MCV 88.0 (80.0-98.0) fL MCH 28.9 (27.0-32.0) pg MCHC 32.8 (31.0-37.0) g/dL RDW Std Deviation 44.0 (28.0-62.0) fl RDW Coeff of [place] 14 (11.0-15.0) % Plt Count 256 (150-400) K/uL MPV 9.30 (7.40-12.00) fL Neut % (Auto) 75.7 (48.0-80.0) % Lymph % (Auto) 16.0 (16.0-40.0) % [place] % (Auto) 8.1 (0.0-15.0) % Eos % (Auto) 0.0 (0.0-7.0) % Baso % (Auto) 0.2 (0.0-1.5) % Neut # (Auto) 6.8 H (1.4-5.7) K/uL Lymph # (Auto) 1.4 (0.6-2.4) K/uL [place] # (Auto) 0.7 (0.0-0.8) K/uL Eos # (Auto) 0.0 (0.0-0.7) K/uL Baso # (Auto) 0.0 (0.0-0.1) K/uL Nucleated RBC % 0.0 /100WBC Nucleated RBCs # 0 K/uL Sodium 142 (136-145) mmol/L Potassium 4.1 (3.5-5.1) mmol/L Chloride 106 (98-107) mmol/L Carbon Dioxide 25.3 (21.0-32.0) mmol/L BUN 22 H (7.0-18.0) mg/dL Creatinine 0.9 (0.6-1.0) mg/dL Est Cr Clr Drug Dosing TNP Estimated GFR (MDRD) > 60.0 ml/min Glucose 139 H (74-106) mg/dL Calcium 8.9 (8.5-10.1) mg/dL Total Bilirubin 0.4 (0.2-1.0) mg/dL AST 22 (15-37) IU/L ALT 24 (14-63) IU/L Alkaline Phosphatase 61 (46-116) U/L Total Protein 6.9 (6.4-8.2) g/dL Albumin 3.4 (3.4-5.0) g/dL Globulin 3.5 (2.6-4.0) g/dL Albumin/Globulin Ratio 1.0 (0.9-1.6) Urine Color YELLOW Urine Appearance CLEAR Urine pH 6.0 (5.0-8.0) Ur Specific [place] >= 1.030 (1.001-1.035) Urine Protein NEGATIVE (NEGATIVE) mg/dL Urine Glucose (UA) NEGATIVE (NEGATIVE) mg/dL Urine Ketones NEGATIVE (NEGATIVE) mg/dL Urine Occult Blood NEGATIVE (NEGATIVE) Urine Nitrite NEGATIVE (NEGATIVE) Urine Bilirubin NEGATIVE (NEGATIVE) Urine Urobilinogen 0.2 (<2.0) EU/dL Ur Leukocyte Esterase NEGATIVE (NEGATIVE) Meds: Medications Generic Name Dose Route Start Last Admin Trade Name Freq PRN Reason Stop Dose Admin Sodium Chloride 10 ml 10/30/18 22:06 Saline Flush FLUSH ASDIRECTED PRN Keep Vein Open Sodium Chloride 2.5 ml 10/30/18 22:06 Saline Flush FLUSH ASDIRECTED PRN Keep Vein Open Discontinued Medications Generic Name Dose Route Start Last Admin Trade Name Freq PRN Reason Stop Dose Admin Ketorolac Tromethamine 30 mg 10/30/18 22:09 10/30/18 22:45 Toradol IVPUSH 10/30/18 22:10 Not Given ONETIME ONE Tramadol HCl 50 mg 10/30/18 22:14 10/30/18 22:45 Ultram PO 10/30/18 22:15 Not Given ONETIME ONE Departure - Departure Time of Disposition: 23:08 Disposition: Home, Self-Care 01 Condition: Good Clinical Impression: Abdominal pain Qualifiers: Abdominal location: unspecified location Qualified Code(s): R10.9 - Unspecified abdominal pain - Discharge Information Referrals: Genaro Avila MD [Primary Care Provider] - Forms: ED Department Discharge Additional Instructions: The following information is given to patients seen in the emergency department who are being discharged to home. This information is to outline your options for follow-up care. We provide all patients seen in our emergency department with a follow-up referral. The need for follow-up, as well as the timing and circumstances, are variable depending upon the specifics of your emergency department visit. If you don't have a primary care physician on staff, we will provide you with a referral. We always advise you to contact your personal physician following an emergency department visit to inform them of the circumstance of the visit and for follow-up with them and/or the need for any referrals to a consulting specialist. The emergency department will also refer you to a specialist when appropriate. This referral assures that you have the opportunity for followup care with a specialist. All of these measure are taken in an effort to provide you with optimal care, which includes your followup. Under all circumstances we always encourage you to contact your private physician who remains a resource for coordinating your care. When calling for followup care, please make the office aware that this follow-up is from your recent emergency room visit. If for any reason you are refused follow-up, please contact the [facility] emergency department at and ask to speak to the emergency department charge nurse. [address] [place] [address] Avila's office tomorrow and schedule a follow-up appointment to discuss her CT scan. Push hydration and use [id number] meds as you choose and return to ER as needed and as discussed - My Orders Last 24 Hours: My Active Orders 10/30/18 22:06 Sodium Chloride 0.9% [Saline Flush] 10 ml FLUSH ASDIRECTED PRN Sodium Chloride 0.9% [Saline Flush] 2.5 ml FLUSH ASDIRECTED PRN Saline Lock Insert [OM.PC] Stat - Assessment/Plan Last 24 Hours: My Active Orders 10/30/18 22:06 Sodium Chloride 0.9% [Saline Flush] 10 ml FLUSH ASDIRECTED PRN Sodium Chloride 0.9% [Saline Flush] 2.5 ml FLUSH ASDIRECTED PRN Saline Lock Insert [OM.PC] Stat
[2018-10-30 23:08] LABS: CHLORIDE,CL 106 mmol/L (98-107); SODIUM,NA 142 mmol/L (136-145)
[2018-10-30 23:15] VITALS: BP 153/98
== END 2018-10-30 23:30 | disposition home or self-care (01) ==
LOC: MW.ED 21:34
DX: R10.9 Unspecified abdominal pain (principal); R93.89 Abnormal findings on diagnostic imaging of other specified body structures; K21.9 Gastro-esophageal reflux disease without esophagitis; F41.9 Anxiety disorder, unspecified; F32.9 Major depressive disorder, single episode, unspecified; J45.909 Unspecified asthma, uncomplicated; I48.91 Unspecified atrial fibrillation; E78.00 Pure hypercholesterolemia, unspecified; Z79.899 Other long term (current) drug therapy; Z88.6 Allergy status to analgesic agent
CPT/HCPCS: 36415; 80053; 81003; 85025; 99283

== ENCOUNTER 2019-03-22 16:04 | Emergency (ER) | payer MEDICARE, BC ==
[2019-03-22] MEDS ORDERED: Sodium Chloride 0.9% 2.5 ML Syringe FLUSH PRN (17:54)
[2019-03-22] MEDS ORDERED: Sodium Chloride 0.9% 10 ML Syringe FLUSH PRN (17:54)
[2019-03-22] MEDS ORDERED: Ondansetron 4 MG/2 ML SDV ONE (17:57)
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
[2019-03-22] MEDS ORDERED: Ondansetron 4 MG/2 ML SDV IVPUSH ONE (18:05)
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
[2019-03-22 19:03] LABS: BLOOD UREA NITROGEN,BUN 23 mg/dL (7.0-18.0); CHLORIDE,CL 107 mmol/L (98-107); GLUCOSE RANDOM 174 mg/dL (74-106); SODIUM,NA 144 mmol/L (136-145)
[2019-03-22] MEDS ORDERED: Iopamidol 755 MG/ML 200 ML Multipack Bottle IVPUSH ONE (20:09)
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
[2019-03-22 21:21] VITALS: BP 132/65; PULSE 78
== END 2019-03-22 21:15 | disposition home or self-care (01) ==
LOC: MW.ED 16:04
DX: S20.01XA Contusion of right breast, initial encounter (principal); S89.92XA Unspecified injury of left lower leg, initial encounter; I48.91 Unspecified atrial fibrillation; E66.9 Obesity, unspecified; Z98.890 Other specified postprocedural states; Z88.6 Allergy status to analgesic agent; V43.52XA Car driver injured in collision with other type car in traffic accident, initial encounter
CPT/HCPCS: 71045; 71260; 73562; 80053; 80305; 81003; 85025; 85610; 85730; 93005; 99284; G0480; Q9967

== ENCOUNTER 2021-12-21 12:04 | Emergency (ER) | payer MEDICARE, BC ==
[2021-12-21 12:43] LABS: BLOOD UREA NITROGEN,BUN 18 mg/dL (7.0-18.0); CARBON DIOXIDE,CO2 26.5 mmol/L (21.0-32.0); CHLORIDE,CL 104 mmol/L (98-107); ESTIMATED GFR 61 mL/min (>60); GLUCOSE RANDOM 117 mg/dL (74-106); LIPASE 240 U/L (73-393); POTASSIUM,K 3.9 mmol/L (3.5-5.1); SODIUM,NA 143 mmol/L (136-145)
[2021-12-21] MEDS ORDERED: Alum Hydro/Mag Hydro/Simeth XS 15 ML, Metoclopramide 5 MG, Lidocaine 2% 5 ML PO ONE ×3 (12:44)
[2021-12-21] MEDS ORDERED: Aspirin 81 MG Tab.Chew PO ONE (12:44)
[2021-12-21 13:12] LABS: CORONAVIRUS COVID-19 NAA NEGATIVE (NEGATIVE); INFLUENZA A NAA NEGATIVE (NEGATIVE); INFLUENZA B NAA NEGATIVE (NEGATIVE)
[2021-12-21 15:50] VITALS: BP 151/86; PULSE 72
== END 2021-12-21 15:47 | disposition home or self-care (01) ==
LOC: MW.ED 12:04
DX: R07.89 Other chest pain (principal); I48.91 Unspecified atrial fibrillation; E78.00 Pure hypercholesterolemia, unspecified; K21.9 Gastro-esophageal reflux disease without esophagitis; E66.9 Obesity, unspecified; Z68.35 Body mass index [BMI] 35.0-35.9, adult; Z88.5 Allergy status to narcotic agent; Z79.899 Other long term (current) drug therapy; Z20.822 Contact with and (suspected) exposure to COVID-19
CPT/HCPCS: 0240U; 36415; 71045; 80053; 83690; 84484; 85025; 93005; 99285; A9270

== ENCOUNTER 2024-08-13 20:28 | Emergency (ER) | payer MEDICARE, BC ==
[2024-08-13] MEDS ORDERED: Sodium Chloride 0.9% 2.5 ML Syringe FLUSH PRN (20:41)
[2024-08-13] MEDS ORDERED: Sodium Chloride 0.9% 10 ML Syringe FLUSH PRN (20:41)
[2024-08-13] MEDS: Diltiazem 25 MG/5 ML SDV IVPUSH ONE (20:45)
[2024-08-13 20:47] LABS: BASOPHILS ABSOLUTE AUTO 0.02 K/uL (0.00-0.20); BASOPHILS PERCENT AUTO 0.3 % (0.0-1.0); HEMATOCRIT 48.7 % (37.0-47.0); HEMOGLOBIN 16.3 g/dL (12.0-16.0); IMMATURE GRAN ABSOLUTE AUTO 0.03 K/uL (0.00-0.05); IMMATURE GRAN PERCENT AUTO 0.4 % (0.0-0.4); LYMPHOCYTES ABSOLUTE AUTO 2.26 K/uL (1.00-4.80); LYMPHOCYTES PERCENT AUTO 30.2 % (24.0-44.0); MEAN CORPUSCULAR HEMOGLOBIN 27.7 pg (28.0-32.0); MEAN CORPUSCULAR HGB CONC 33.5 g/dL (32.0-36.0); MEAN CORPUSCULAR VOLUME 82.7 fL (83.0-99.0); NEUTROPHILS ABSOLUTE AUTO 4.28 K/uL (1.80-7.70); NEUTROPHILS PERCENT AUTO 57.1 % (41.0-71.0); PLATELET COUNT,PLT 263 K/uL (150-400); RED BLOOD CELL COUNT 5.89 M/uL (4.10-5.30); WHITE BLOOD CELL COUNT,WBC 7.49 K/uL (3.9-11.3)
[2024-08-13 21:08] LABS: CALCIUM 9.7 mg/dL (8.5-10.1); CARBON DIOXIDE,CO2 24.5 mmol/L (21.0-32.0); CREATININE 1.2 mg/dL (0.6-1.0); EST CRCL DRUG DOSING (CG) 35.57 mL/min; MAGNESIUM 2.2 mg/dL (1.8-2.4)
[2024-08-13] MEDS: Diltiazem 120 MG Cap.CD PO ONE (21:26)
[2024-08-14 01:04] VITALS: BP 125/67; PULSE 83
== END 2024-08-14 01:04 | disposition home or self-care (01) ==
LOC: MW.ED 20:28
DX: I48.91 Unspecified atrial fibrillation (principal); E78.00 Pure hypercholesterolemia, unspecified; K21.9 Gastro-esophageal reflux disease without esophagitis; E66.9 Obesity, unspecified; Z79.899 Other long term (current) drug therapy; Z79.2 Long term (current) use of antibiotics; Z79.51 Long term (current) use of inhaled steroids; Z88.5 Allergy status to narcotic agent; Z68.35 Body mass index [BMI] 35.0-35.9, adult
CPT/HCPCS: 36415; 80048; 83735; 84484; 85025; 93005; 96374; 99285; A9270; J3490; 93010; 99284

== ENCOUNTER 2024-08-30 23:06 | Emergency (ER) | payer MEDICARE, BC ==
[2024-08-30] MEDS ORDERED: Sodium Chloride 0.9% 20 ML SDV IV PRN (23:18)
[2024-08-30] MEDS ORDERED: Sodium Chloride 0.9% 10 ML Syringe FLUSH PRN (23:18)
[2024-08-30] MEDS: Diltiazem 25 MG/5 ML SDV IVPUSH ONE (23:32)
[2024-08-30 23:34] LABS: BASOPHILS ABSOLUTE AUTO 0.03 K/uL (0.00-0.20); BASOPHILS PERCENT AUTO 0.4 % (0.0-1.0); HEMATOCRIT 48.1 % (37.0-47.0); HEMOGLOBIN 16.3 g/dL (12.0-16.0); IMMATURE GRAN ABSOLUTE AUTO 0.02 K/uL (0.00-0.05); IMMATURE GRAN PERCENT AUTO 0.3 % (0.0-0.4); LYMPHOCYTES PERCENT AUTO 30.8 % (24.0-44.0); MEAN CORPUSCULAR HEMOGLOBIN 28.2 pg (28.0-32.0); MEAN CORPUSCULAR HGB CONC 33.9 g/dL (32.0-36.0); MEAN CORPUSCULAR VOLUME 83.1 fL (83.0-99.0); MEAN PLATELET VOLUME 8.9 fL (9.4-12.3); MONOCYTES ABSOLUTE AUTO 0.97 K/uL (0.00-0.80); MONOCYTES PERCENT AUTO 13.6 % (0.0-8.0); NEUTROPHILS ABSOLUTE AUTO 3.93 K/uL (1.80-7.70); NEUTROPHILS PERCENT AUTO 54.9 % (41.0-71.0); PLATELET COUNT,PLT 243 K/uL (150-400); RED BLOOD CELL COUNT 5.79 M/uL (4.10-5.30); WHITE BLOOD CELL COUNT,WBC 7.15 K/uL (3.9-11.3)
[2024-08-30] MEDS: Sodium Chloride 0.9% 2.5 ML Syringe FLUSH PRN (23:35)
[2024-08-30] MEDS: Diltiazem IR 30 MG Tab PO ONE (23:40)
[2024-08-30 23:45] LABS: INR 1.07 (0.86-1.11)
[2024-08-31 00:06] LABS: A/G RATIO 1.1 (0.9-1.6); ALANINE AMINOTRANSFERASE,ALT 44 IU/L (14-63); ALKALINE PHOSPHATASE 93 U/L (46-116); ASPARTATE AMNIOTRANSFERASE,AST 28 IU/L (15-37); BILIRUBIN TOTAL 0.3 mg/dL (0.2-1.0); BLOOD UREA NITROGEN,BUN 24 mg/dL (7.0-18.0); CALCIUM 9.8 mg/dL (8.5-10.1); CARBON DIOXIDE,CO2 27.6 mmol/L (21.0-32.0); CHLORIDE,CL 105 mmol/L (98-107); EST CRCL DRUG DOSING (CG) 40.22 mL/min; GLUCOSE RANDOM 127 mg/dL (74-106); POTASSIUM,K 3.6 mmol/L (3.5-5.1); PRO B-TYPE NATRIUR PEPT,BNPPRO 27 pg/mL (0-125); PROTEIN TOTAL,TP 7.7 g/dL (6.4-8.2); SODIUM,NA 145 mmol/L (136-145)
[2024-08-31 00:09] LABS: ESTIMATED GFR 60 mL/min (>60)
[2024-08-31 02:23] VITALS: BP 116/61; PULSE 90
== END 2024-08-31 02:05 | disposition home or self-care (01) ==
LOC: MW.ED 23:06
DX: I48.91 Unspecified atrial fibrillation (principal); I11.9 Hypertensive heart disease without heart failure; E78.00 Pure hypercholesterolemia, unspecified; J45.909 Unspecified asthma, uncomplicated; Z88.5 Allergy status to narcotic agent; Z79.899 Other long term (current) drug therapy; Z79.01 Long term (current) use of anticoagulants
CPT/HCPCS: 36415; 71045; 80053; 83880; 84443; 84484; 85025; 85610; 85730; 93005; 96374; 99285; A9270; J3490; 93010; 99284

== ENCOUNTER 2024-09-10 03:42 | Emergency (ER) | payer MEDICARE, BC ==
[2024-09-10] MEDS ORDERED: Sodium Chloride 0.9% 10 ML Syringe FLUSH PRN (03:53)
[2024-09-10] MEDS ORDERED: Sodium Chloride 0.9% 2.5 ML Syringe FLUSH PRN (03:53)
[2024-09-10 04:07] LABS: BASOPHILS ABSOLUTE AUTO 0.02 K/uL (0.00-0.20); BASOPHILS PERCENT AUTO 0.3 % (0.0-1.0); HEMATOCRIT 43.9 % (37.0-47.0); HEMOGLOBIN 14.9 g/dL (12.0-16.0); IMMATURE GRAN ABSOLUTE AUTO 0.01 K/uL (0.00-0.05); IMMATURE GRAN PERCENT AUTO 0.2 % (0.0-0.4); LYMPHOCYTES ABSOLUTE AUTO 1.76 K/uL (1.00-4.80); LYMPHOCYTES PERCENT AUTO 30.7 % (24.0-44.0); MEAN CORPUSCULAR HEMOGLOBIN 28.4 pg (28.0-32.0); MEAN CORPUSCULAR HGB CONC 33.9 g/dL (32.0-36.0); MEAN CORPUSCULAR VOLUME 83.8 fL (83.0-99.0); MEAN PLATELET VOLUME 9.1 fL (9.4-12.3); MONOCYTES ABSOLUTE AUTO 0.59 K/uL (0.00-0.80); MONOCYTES PERCENT AUTO 10.3 % (0.0-8.0); NEUTROPHILS ABSOLUTE AUTO 3.36 K/uL (1.80-7.70); NEUTROPHILS PERCENT AUTO 58.5 % (41.0-71.0); PLATELET COUNT,PLT 192 K/uL (150-400); RED BLOOD CELL COUNT 5.24 M/uL (4.10-5.30); WHITE BLOOD CELL COUNT,WBC 5.74 K/uL (3.9-11.3)
[2024-09-10 04:33] LABS: A/G RATIO 1.2 (0.9-1.6); ALANINE AMINOTRANSFERASE,ALT 35 IU/L (14-63); ALBUMIN 3.9 g/dL (3.4-5.0); ALKALINE PHOSPHATASE 80 U/L (46-116); ASPARTATE AMNIOTRANSFERASE,AST 24 IU/L (15-37); BILIRUBIN TOTAL 0.5 mg/dL (0.2-1.0); BLOOD UREA NITROGEN,BUN 17 mg/dL (7.0-18.0); CALCIUM 9.6 mg/dL (8.5-10.1); CARBON DIOXIDE,CO2 26.7 mmol/L (21.0-32.0); CHLORIDE,CL 104 mmol/L (98-107); ESTIMATED GFR 60 mL/min (>60); GLUCOSE RANDOM 134 mg/dL (74-106); MAGNESIUM 1.9 mg/dL (1.8-2.4); POTASSIUM,K 3.8 mmol/L (3.5-5.1); PROTEIN TOTAL,TP 7.2 g/dL (6.4-8.2); SODIUM,NA 142 mmol/L (136-145)
[2024-09-10] MEDS: Sodium Chloride 0.9% 1,000 ML IV ONE (04:47)
[2024-09-10] MEDS: Famotidine 20 MG/2 ML SDV IVPUSH ONE (04:47)
[2024-09-10] MEDS: Alum Hydrox/Mag Hydrox/Simeth 15 ML, Lidocaine 2% 5 ML PO ONE (04:47)
[2024-09-10 07:04] VITALS: BP 150/99; PULSE 82
== END 2024-09-10 07:22 | disposition home or self-care (01) ==
LOC: MW.ED 03:42
DX: R07.9 Chest pain, unspecified (principal); I48.91 Unspecified atrial fibrillation; I10 Essential (primary) hypertension; E78.00 Pure hypercholesterolemia, unspecified; J45.909 Unspecified asthma, uncomplicated; Z88.5 Allergy status to narcotic agent; Z79.01 Long term (current) use of anticoagulants; Z79.51 Long term (current) use of inhaled steroids; Z79.899 Other long term (current) drug therapy
CPT/HCPCS: 36415; 71045; 80053; 83735; 84484; 85025; 93005; 96374; 99285; A9270; J7030; 93010; 99283

== ENCOUNTER 2024-09-15 08:32 | Emergency (ER) | payer MEDICARE, BC ==
[2024-09-15] MEDS ORDERED: Diltiazem 100 MG in Sodium Chloride 0.9% 100 ML IV SCH (09:00)
[2024-09-15] MEDS: Diltiazem 25 MG/5 ML SDV IVPUSH ONE ×2 (09:15→10:41)
[2024-09-15 09:27] LABS: BASOPHILS ABSOLUTE AUTO 0.01 K/uL (0.00-0.20); BASOPHILS PERCENT AUTO 0.2 % (0.0-1.0); HEMATOCRIT 46.9 % (37.0-47.0); HEMOGLOBIN 15.9 g/dL (12.0-16.0); IMMATURE GRAN ABSOLUTE AUTO 0.02 K/uL (0.00-0.05); IMMATURE GRAN PERCENT AUTO 0.4 % (0.0-0.4); LYMPHOCYTES ABSOLUTE AUTO 1.04 K/uL (1.00-4.80); LYMPHOCYTES PERCENT AUTO 20.7 % (24.0-44.0); MEAN CORPUSCULAR HEMOGLOBIN 28.3 pg (28.0-32.0); MEAN CORPUSCULAR HGB CONC 33.9 g/dL (32.0-36.0); MEAN CORPUSCULAR VOLUME 83.5 fL (83.0-99.0); MEAN PLATELET VOLUME 8.9 fL (9.4-12.3); NEUTROPHILS ABSOLUTE AUTO 3.45 K/uL (1.80-7.70); NEUTROPHILS PERCENT AUTO 68.7 % (41.0-71.0); PLATELET COUNT,PLT 219 K/uL (150-400); RED BLOOD CELL COUNT 5.62 M/uL (4.10-5.30); WHITE BLOOD CELL COUNT,WBC 5.02 K/uL (3.9-11.3)
[2024-09-15 09:51] LABS: A/G RATIO 1.1 (0.9-1.6); BILIRUBIN DIRECT 0.1 mg/dL (0.0-0.5); BILIRUBIN INDIRECT 0.4; BILIRUBIN TOTAL 0.5 mg/dL (0.2-1.0); CALCIUM 9.5 mg/dL (8.5-10.1); CARBON DIOXIDE,CO2 26.8 mmol/L (21.0-32.0); CREATININE 1.1 mg/dL (0.6-1.0); EST CRCL DRUG DOSING (CG) 36.56 mL/min; POTASSIUM,K 3.6 mmol/L (3.5-5.1); PROTEIN TOTAL,TP 7.5 g/dL (6.4-8.2)
[2024-09-15 12:48] VITALS: BP 104/84; PULSE 94
== END 2024-09-15 12:47 | disposition home or self-care (01) ==
LOC: MW.ED 08:32
DX: R00.2 Palpitations (principal); I48.91 Unspecified atrial fibrillation; E78.00 Pure hypercholesterolemia, unspecified; J45.909 Unspecified asthma, uncomplicated; Z88.5 Allergy status to narcotic agent; Z79.01 Long term (current) use of anticoagulants; Z79.899 Other long term (current) drug therapy; Z75.8 Other problems related to medical facilities and other health care
CPT/HCPCS: 36415; 71045; 80048; 80076; 84484; 85025; 85379; 93005; 96374; 96376; 99285; J3490; 93010; 99284